=== PATIENT | female | born 1930 | race Caucasian/White ===

== ENCOUNTER 2017-12-03 00:02 | Emergency (ER) | payer OTHER ==
[~2017-12-03] VITALS: Ht 157.5 cm; Wt 63.5 kg
[~2017-12-03 00:02] MED LIST: CHOLESTEROL PILL PO; LEVOTHYROXINE PO; LISI10TA5 PO; METF850T2 PO
--- NOTE | 2017-12-03 00:13 | NUR ---
DR SUSAN SANCHEZ MD AT BEDSIDE FOR MSE.
[2017-12-03] MEDS ORDERED: LEVOTHYROXINE SODIUM 125 MCG (00:24)
--- NOTE | 2017-12-03 00:24 | NUR ---
LAB AT BEDSIDE FOR BLOOD DRAW.
[2017-12-03] MEDS ORDERED: MECLIZINE HCL 25 MG TABLET ONE (00:29)
--- NOTE | 2017-12-03 00:29 | NUR ---
PT TAKEN TO RADIOLOGY FOR CT. NO ACUTE DISTRESS NOTED.
[2017-12-03] MEDS ORDERED: MECLIZINE HCL 25 MG TABLET PO ONE (00:30)
[2017-12-03 00:43] LABS: BASOPHILS % (AUTO) 0.4 % (0.0-2.0); CARBON DIOXIDE 24 mmol/L (21-32); CHLORIDE 103 mmol/L (98-107); CREATININE 0.9 mg/dL (0.6-1.3); EOSINOPHILS # (AUTO) 0.1 K/uL (0.0-0.7); EOSINOPHILS % (AUTO) 2.1 % (0.0-7.0); GLUCOSE 162 mg/dL (74-106); HEMATOCRIT 39.9 % (31.2-41.9); HEMOGLOBIN 14.3 g/dL (10.9-14.3); LYMPHOCYTES # (AUTO) 2.3 K/uL (20.0-40.0); LYMPHOCYTES % (AUTO) 38.3 % (20.5-51.5); MEAN CORPUSCULAR HEMOGLOBIN 32.5 uug (24.7-32.8); MEAN CORPUSCULAR HGB CONC 36 g/dL (32.3-35.6); MEAN CORPUSCULAR VOLUME 90.5 fL (75.5-95.3); MONOCYTES # (AUTO) 0.7 K/uL (2.0-10.0); MONOCYTES % (AUTO) 12.1 % (0.0-11.0); NEUTROPHILS # (AUTO) 2.8 K/uL (1.8-8.9); NEUTROPHILS % (AUTO) 47.1 % (38.5-71.5); PLATELET COUNT (AUTO) 175 K/uL (179-408); POTASSIUM 3.8 mmol/L (3.5-5.1); RED BLOOD CELL COUNT(AUTO) 4.41 MIL/uL (3.63-4.92); UREA NITROGEN, BLOOD 10 mg/dL (7-18)
--- NOTE | 2017-12-03 00:52 | NUR ---
PT ASSISTED TO USE BEDPAN. URINE SENT TO LAB. NO ACUTE DISTRESS NOTED AT THIS TIME. PENDING LAB AND CT RESULTS.
[2017-12-03] MEDS ORDERED: ACETAMINOPHEN ES 500 MG TABLET PO ONE (01:15)
[2017-12-03] MEDS ORDERED: ACETAMINOPHEN ES 500 MG TABLET ONE (01:17)
[2017-12-03 01:19] LABS: *BILIRUBIN,URIN NEGATIVE (NEGATIVE); *BLOOD, URINE NEGATIVE (NEGATIVE); *CLARITY,URINE CLEAR (CLEAR); *COLOR,URINE YELLOW (YELLOW); *KETONES,URINE NEGATIVE (NEGATIVE); *PROTEIN,URINE NEGATIVE (NEGATIVE); *UROBILINOGEN,URINE 0.2 E.U./dl (NORMAL); LEUKOCYTE ESTERASE ,URINE 1+ (NEGATIVE); NITRITE, URINE NEGATIVE (NEGATIVE); PH,URINE 8.5 (5.0-8.0); UGLUCOSE NEGATIVE (NEGATIVE)
[2017-12-03 01:25] LABS: BACTERIA,URINE NONE SEEN /HPF (NONE SEEN); RBC,URINE 0-3 /HPF (0-3); SQUAMOUS EPITHELIAL CELL,UR FEW /HPF (NONE SEEN)
--- NOTE | 2017-12-03 01:43 | NUR ---
PT RESTING IN BED W/ EYES CLOSED. NO ACUTE DISTRESS NOTED.
[2017-12-03] MEDS ORDERED: LEVO125T8 PO (01:51)
[2017-12-03] MEDS ORDERED: HUMULIN N (01:54)
--- NOTE | 2017-12-03 02:50 | NUR ---
CALLED [facility] TO ARRANGE TRANSPORT BACK HOME POST DISCHARGE. TRIP #[id number], ETA 30-45 MINUTES
[2017-12-03 03:19] VITALS: BP 145/76
--- NOTE | 2017-12-03 03:28 | NUR ---
Patient discharged to home in stable conditon. Written and verbal after care instructions given. Patient verbalizes understanding of instructions. Pt discharged to home and taken by [facility]. Pt took all personal belongings. No distress noted. Pt states she "feels so much better".
--- NOTE | 2017-12-07 14:53 | NUR ---
Patient Cx came back positive for E.Coli and Mix Contaminant, results were discussed with . pt was called. pt is doing well and has no complains. thinks it is contamination. pt is aware of the results. pt was told if she feels any symptoms come back to [facility] or contact her PCP.
== END 2017-12-03 03:29 | disposition home or self-care (01) ==
LOC: ER 00:02
DX: R42 Dizziness and giddiness (principal); I10 Essential (primary) hypertension; E11.9 Type 2 diabetes mellitus without complications; K21.9 Gastro-esophageal reflux disease without esophagitis; Z88.2 Allergy status to sulfonamides; R11.0 Nausea
CPT/HCPCS: 36415; 70450; 80048; 81001; 82962; 84443; 84484; 85025; 87077; 87086; 87186; 93005; 99285; A4663; A9150; J8597; 70030-TC